=== PATIENT | male | born 1995 | race Two or more races ===

== ENCOUNTER 2018-05-31 08:14 | Emergency (ER) | payer SELFPAY ==
--- NOTE | 2018-05-31 09:09 | ER Document Report ---
ED General - General Mode of Arrival: Ambulatory Information source: Patient TRAVEL OUTSIDE OF THE [place] IN LAST 30 DAYS: No <MADELIN BRIAN - Last Filed: 05/31/18 15:50> <NAVJOT TODD - Last Filed: 05/31/18 16:02> - General Chief Complaint: Elbow Injury Stated Complaint: ELBOW PAIN Time Seen by Provider: 05/31/18 08:33 Notes: Patient is a 22 year old male presenting to the emergency department accompanied by aunts complaining of left elbow pain onset 1 week ago. Patient states he fell on his left elbow approximately 1 week ago and has been having constant pain since. Patient states the pain extends from the left elbow to his left hand. He states he placed BenGay on the area and wrapped his elbow but it did not relieve his pain. He states he noticed some skin changes after he unwrapped his elbow. He states he presented to the emergency department because the pain has not gone way and he can not fully bend his elbow. [employer] science interpreter at bedside. (MADELIN BRIAN) - Related Data Allergies/Adverse Reactions: No Known Allergies Allergy (Unverified 05/31/18 08:18) Past Medical History - General Information source: Patient - Social History Smoking Status: Never Smoker Cigarette use (# per day): No Chew tobacco use (# tins/day): No Smoking Education Provided: No Frequency of alcohol use: None Drug Abuse: None Family History: Reviewed & Not Pertinent Patient has suicidal ideation: No Patient has homicidal ideation: No <MADELIN BRIAN - Last Filed: 05/31/18 15:50> Review of Systems - Review of Systems Constitutional: No symptoms reported EENT: No symptoms reported Cardiovascular: No symptoms reported Respiratory: No symptoms reported Gastrointestinal: No symptoms reported Genitourinary: No symptoms reported Male Genitourinary: No symptoms reported Musculoskeletal: See HPI Skin: No symptoms reported Hematologic/Lymphatic: No symptoms reported Neurological/Psychological: No symptoms reported -: Yes All other systems reviewed and negative <MADELIN BRIAN - Last Filed: 05/31/18 15:50> Physical Exam <MADELIN BRIAN - Last Filed: 05/31/18 15:50> <NAVJOT TODD - Last Filed: 05/31/18 16:02> - Vital signs Vitals: Temp Pulse Resp BP Pulse Ox 98.0 F 62 12 134/83 H 99 05/31/18 08:19 05/31/18 08:19 05/31/18 08:19 05/31/18 08:19 05/31/18 08:19 - Notes Notes: GENERAL: Alert, interacts well. No acute distress. HEAD: Normocephalic, atraumatic. EYES: Pupils equal, round, and reactive to light. Extraocular movements intact. ENT: Oral mucosa moist, tongue midline. NECK: Full range of motion. Supple. Trachea midline. LUNGS: No respiratory distress. EXTREMITIES: Moves all 4 extremities spontaneously.Tender to palpation in the webspace between first and second digits of the left hand. Bony tenderness to palpation to the left olecranon and the left medial epicondyle. Normal pulses, normal capillary refill, sensations intact. NEUROLOGICAL: Alert and oriented x3. Normal speech. PSYCH: Normal affect, normal mood. SKIN: Warm, dry, normal turgor. Thickening of the skin, some bruising, some dry skin which is peeling circumferentially around the elbow, possibly due to use of BenGay. (MADELIN BRIAN) Course <MADELIN BRIAN - Last Filed: 05/31/18 15:50> <NAVJOT TODD - Last Filed: 05/31/18 16:02> - Re-evaluation Re-evalutation: 05/31/18 10:11 X-rays are negative, no evidence of fracture dislocation, there is still some swelling in the area, Abner wrap will be applied and patient will be placed in a sling. Patient will be discharged home and asked to follow-up with orthopedics. (NAVJOT TODD) - Vital Signs Vital signs: Temp Pulse Resp BP Pulse Ox 98.0 F 61 16 134/88 H 100 05/31/18 08:19 05/31/18 10:28 05/31/18 10:28 05/31/18 10:28 05/31/18 10:28 Procedures - Immobilization left elbow Pre-Proc Neuro Vasc Exam: Normal Immobilizer type: Abner wrap Performed by: SHAE Post-Proc Neuro Vasc Exam: Normal, Unchanged from pre-exam Alignment checked and good: Yes left arm Immobilizer type: Sling Performed by: RN Post-Proc Neuro Vasc Exam: Normal, Unchanged from pre-exam Alignment checked and good: Yes <NAVJOT TODD - Last Filed: 05/31/18 16:02> Discharge <MADELIN BRIAN - Last Filed: 05/31/18 15:50> <NAVJOT TODD - Last Filed: 05/31/18 16:02> - Discharge Clinical Impression: Sprain of left elbow Qualifiers: Encounter type: initial encounter Qualified Code(s): S53.402A - Unspecified sprain of left elbow, initial encounter Condition: Stable Disposition: HOME, SELF-CARE Instructions: Sprain ([facility]) Prescriptions: Ibuprofen 800 mg PO TIDP #30 tablet Referrals: CRUZ JONES MD [ACTIVE STAFF] - Follow up in 3-5 days Print Language: Moroccan Scribe Attestation: 05/31/18 16:01 I personally performed the services described in the documentation, reviewed and edited the documentation which was dictated to the scribe in my presence, and it accurately records my words and actions. (NAVJOT TODD) Scribe Documentation - Scribe Written by Warrenibreynaldo:: Ema Reardon, 05/31/2018 09:31 acting as scribe for :: Marizol <MADELIN BRIAN - Last Filed: 05/31/18 15:50>
--- NOTE | 2018-05-31 10:00 | RADIOLOGY REPORT (SQ) ---
EXAM DESCRIPTION: ELBOW LEFT OVER 2 VIEWS COMPLETED DATE/TIME: 05/31/2018 9:46 am REASON FOR STUDY: landed on left elbow COMPARISON: None. NUMBER OF VIEWS: Four views. TECHNIQUE: AP, lateral, and both oblique radiographic images acquired of the left elbow. LIMITATIONS: None. FINDINGS: MINERALIZATION: Normal. BONES: No acute fracture or dislocation. No worrisome bone lesions. JOINT: No effusion. SOFT TISSUES: No soft tissue swelling. No foreign body. OTHER: No other significant finding. IMPRESSION: NEGATIVE STUDY OF THE LEFT ELBOW. NO RADIOGRAPHIC EVIDENCE OF ACUTE INJURY. TECHNICAL DOCUMENTATION: JOB ID: [id number]- All Rights Reserved Reading location - IP/workstation name: [email or web address]
[2018-05-31 10:29] VITALS: BP 134/88
== END 2018-05-31 10:30 | disposition home or self-care (01) ==
LOC: ER 08:14
DX: S53.402A Unspecified sprain of left elbow, initial encounter (principal); M25.522 Pain in left elbow; W19.XXXA Unspecified fall, initial encounter
CPT/HCPCS: 99283